=== PATIENT | male | born 1975 | race Caucasian/White ===

== ENCOUNTER 2016-12-12 01:05 | Emergency (ER) | payer MEDICARE, OTHER ==
[~2016-12-12] VITALS: Ht 175.3 cm; Wt 127.3 kg
[2016-12-12 01:19] VITALS: BP 125/74; PULSE 108; RESP 18; O2SAT 97
--- NOTE | 2016-12-12 01:46 | ED.REPORT ---
HPI-URI / Cough / Cold Date of Service Dec 12, 2016 ED Provider: Ezequiel Lucas DO Pt is a 41 y.o. male with a hx of HTN and asthma who presents to the ED c/o intermittent clear productive cough onset 7 weeks ago and worsening over last 3 days. Pt reports associated subjective fever and pleuritic pain. He denies vomiting and bloody productive cough. He denies a hx of thrombosis. Nursing Notes Stated Complaint: COUGH Chief Complaint: FLU/Cold Symptoms Nursing Notes Reviewed: Yes Allergies: Coded Allergies: alcohol (Verified Allergy, Unknown, 12/12/16) Uncoded Allergies: MACADAMION NUTS (Allergy, Unknown, 12/12/16) General Time Seen by MD: 01:45 Chief Complaint Cough, productive... (Clear) Hx Obtained From: Patient Arrived By: Walk-in Onset Occurred: More than a week ago... Symptom Duration: Intermittent Location: : Chest Quality: Painful, Pleuritic Severity: Current: Moderate Recent Healthcare: No recent doctor visit, No recent hospitalization Past Medical History Past Medical History Reports: Asthma, Hypertension Past Surgical History Partial colonectomy Review of Systems Constitutional: Reports: Fever (Subjective) Respiratory: Reports: Pleuritic pain, Prod cough, clear, Denies: Prod cough, bloody GI: Denies: Vomiting Complete sys rev & neg: except as marked. Physical Exam Initial Vital Signs Vital Signs (First) Date Time Temp Pulse Resp B/P Pulse Ox O2 Delivery O2 Flow Rate FiO2 12/12/16 01:19 36.6 108 18 125/74 97 Room Air Initial VS: Reviewed Head / Eyes: Atraumatic, Normocephalic Abdomen / GI: Soft, No distention Extremities: Vascular intact, Neuro intact Skin: Warm, Dry, No cyanosis Neurologic: Alert, Oriented, Nonfocal Psychiatric: Mood/affect normal, Behavior normal, Normal thought content General/Constitutional: Awake, Alert, No acute distress, Well appearing, Well developed, Well hydrated, Well nourished, Not toxic appearing Appearance / Presentation: Positive: Obese ENT: Atraumatic, Airway patent Respiratory / Chest: Atraumatic, No respiratory distress Wheezing diffuse, right greater than left. Cardiovascular: Heart sounds NL, Peripheral circulation NL Heart Rate / Rhythm: Positive: Tachycardia No lower extremity edema Interpretation & Diagnostics Lab Results Interpretation Result Diagram: 12/12/16 0202 Test 12/12/16 02:02 D-Dimer < 0.5mg/L (<0.50) Sodium Level 140mEq/L (134-144) Potassium Level 3.9mEq/L (3.5-5.2) Chloride Level 99mEq/L (97-108) Carbon Dioxide Level 26mmol/L (18-29) Blood Urea Nitrogen 18mg/dL (6-24) Creatinine 0.91mg/dL (0.76-1.27) Estimat Glomerular Filtration Rate 97mL/min (>59) Glucose Level 182mg/dL (60-99) Calcium Level 9.6mg/dL (8.5-10.1) Hold Vizcaino Top Tube Received (Received) Lab Results Interpretation: Influenza negative X-Ray Chest Interpretation Chest Xray Interpretation: IMPRESSION: No acute cardiopulmonary disease. Interpretation / Wet Read by: Wet read ED physician Re-Eval/Medical Decision Med Decision/Clinical Course This is a very pleasant 41-year-old male who presents with cough and wheeze. He states he has been fighting with bronchitis for about 7 weeks. He seemed to have an upper respiratory tract infection and landed in the sinuses. This started to resolve however over the last 3 days he is coughing with more sputum. He normally is followed at the [facility] but he has not been able to get into the [facility]. He denies having any chest pain. He does have some upper back pain only when he coughs. He has not had any hemoptysis. He has no dyspnea on exertion. He has no PND. No history of coronary artery disease. Examination had diffuse expiratory wheezes right greater than left. He did have frequent coughing. Legs without edema. Cardiac is regular without murmur or S3-S4 gallop. No JVD. DuoNeb was given with prompt and dramatic relief. After this Mr. Jarrell was able to take a nice deep breath and his lungs were clearing and no further cough. Two-view chest x-ray is normal. D-dimer was negative. Electrolytes show a glucose of 180. Otherwise normal. Influenza was negative but with his fever chills and cough and the amount of fluid were seeing I think that we need to treat him. He is going to be on influenza and doxycycline. I am pretty sure he has bronchitis and may well be influenza. Certainly should be treated. All placement short course of prednisone and the inhaler. He was given a take-home pack of Alliance for the cough and body aches. I do recommend close outpatient follow-up. I mentioned to him that his blood sugars 180 and asked him to have [facility]. He agrees to this. Routine opiate warnings were given. He was discharged in stable condition. Have any chest pain. Myocardial infarction seems very unlikely as the cause of his cough and fever. As such EKG and troponin were not indicated. At discharge his heart rate was 87. Re-Evaluation/Progress : Time of Eval: 02:59 Discharge & Departure Shift Change Sign-Out Response to Therapy: Improved Impression: Primary Impression: Bronchitis Additional Impression: Bronchial spasm Disposition: Home Discharge Condition All VS Reviewed: Yes Condition: Stable Additional Instructions: Albuterol 2 puffs every 2-3 hours as needed. Doxycycline twice daily for 7 days for infection. Tamiflu twice daily for influenza. 1-2 Nar[place] every 6 hours as needed for cough and pain. Do not drink drive or consume acetaminophen when taking Alliance. Follow-up with your primary care provider in the next few days. Your blood glucose was 182, follow-up with your primary care provider about this. Please return if your symptoms worsen. Referrals: [facility] ([facility] Dennis Attestation Portions of this note were transcribed by Rosa Ricci. I, Dr. Lucas personally performed the history, physical exam and medical decision-making; I reviewed and confirmed the accuracy of the information in the transcribed note. Signed by : Dennis Hunt, 12/12/16 and 0307. copies to: [facility] Ezequiel Lucas DO Dec 12, 2016 01:46 ROSA RICCI Dec 12, 2016 01:56
[2016-12-12] MEDS ORDERED: _Albuterol-HFA 60 Puff Inhaler INHALATION PRN (01:50)
[2016-12-12] MEDS ORDERED: Albuterol-Ipratropium 3 mL Inhalation Solution NEB ONE (01:50)
[2016-12-12] MEDS ORDERED: predniSONE 20 mg Tablet PO ONE (01:50)
[2016-12-12] MEDS ORDERED: _HYDROcodone/APAP 5-325 mg Tablet PO PRN (01:50)
[2016-12-12 02:17] VITALS: PULSE 104; RESP 20; O2SAT 98
[2016-12-12] MEDS ORDERED: Magnesium Sulf 2 Gm/50mL Water 2 GM in IV Premix 1 EACH IV ONE (02:45)
[2016-12-12] MEDS ORDERED: Albuterol 2.5 mg/3 mL Inhalation Solution NEB ONE (02:45)
[2016-12-12 03:10] VITALS: BP 144/82; PULSE 102; RESP 18; O2SAT 99
--- NOTE | 2016-12-12 09:21 | DRSVH ---
PROCEDURE: X-RAY CHEST, TWO VIEWS ([id number]) INDICATIONS: cough TECHNIQUE: 2 views of the chest were acquired. COMPARISON: [facility], , CHEST 2VW, 06/01/2013, 9:05. FINDINGS: Surgical changes and devices: None. Lungs and pleura: No pleural effusions or pneumothorax. Lungs are clear. Mediastinum: Mediastinal contours are normal. Heart size is normal. Bones and chest wall: No suspicious bony abnormalities. Soft tissues appear unremarkable. IMPRESSION: No acute cardiopulmonary disease. Dictated by: Abdullahi Martinez [facility] Interpreted: Esther Vo MD on 12/12/2016 at 9:20 Transcribed by: COURTNEY on 12/12/2016 at 9:21 Approved by: Esther Vo MD, PhD on 12/12/2016 at 16:44
== END 2016-12-12 03:11 | disposition home or self-care (01) ==
LOC: SED 01:05
DX: J40 Bronchitis, not specified as acute or chronic (principal); J98.01 Acute bronchospasm; R50.9 Fever, unspecified; J45.909 Unspecified asthma, uncomplicated; I10 Essential (primary) hypertension; Z91.048 Other nonmedicinal substance allergy status
CPT/HCPCS: 36415; 71020; 80048; 85379; 87804; 94640; 99284; J7620